=== PATIENT | female | born 1950 | race American Indian/Alaskan Native ===

== ENCOUNTER 2019-05-10 11:09 | Emergency (ER) | payer BC, MEDICARE ==
[2019-05-10 11:17] VITALS: BP 197/66
--- NOTE | 2019-05-10 11:48 | Emergency Department Report ---
Blank Doc - Documentation Documentation: This is a 68-year-old female that presents with left toe pain. This initial assessment/diagnostic orders/clinical plan/treatment(s) is/are subject to change based on patient's health status, clinical progression and re- assessment by fellow clinical providers in the ED. Further treatment and workup at subsequent clinical providers discretion. Patient/guardians urged not to elope from the ED as their condition may be serious if not clinically assessed and managed. Initial orders include: 1- Patient sent to [facility] for further evaluation and treatment 2- xrays
--- NOTE | 2019-05-10 12:07 | XRay Report ---
LEFT GREAT TOE 3 VIEWS INDICATION / CLINICAL INFORMATION: pain/swelling r/t injury. COMPARISON: None available. FINDINGS: Moderate degenerative change in the first metatarsophalangeal joint with subchondral cyst formation. No other significant skeletal abnormality. Signer Name: Prasanna Lovett MD FACR Signed: 05/10/2019 12:03 PM Workstation Name: [id number]
--- NOTE | 2019-05-10 13:02 | Emergency Department Report ---
ED Lower Extremity HPI - General Chief Complaint: Extremity Injury, Lower Stated Complaint: LT BIG TOE/SWELLING/PAIN Time Seen by Provider: 05/10/19 11:47 Source: patient Mode of arrival: Ambulatory Limitations: No Limitations - History of Present Illness Initial Comments: This is a 68-year-old female nontoxic, well nourished in appearance, no acute signs of distress presents to the ED with c/o of left great toe pain after hitting it yesterday. Patient denies any other trauma or injuries. Denies decreased ROM, joint swelling, redness, or abnormal gait. Denies any fever, chills, nausea, vomiting, headache, stiff neck, chest pain or shortness of breath. Patient denies any numbness or tingling. Denies any allergies. MD Complaint: other (left great toe) -: days(s) Injury: Toes: Left Severity: mild Severity scale (0 -10): 8 Improves With: immobilization Worsens With: weight bearing, movement, palpation Associated Symptoms: able to partially bear weight, ambulatory. denies: snap/pop sensation, swelling, numbness, tingling, unable to bear weight - Related Data Allergies Allergy/AdvReac Type Severity Reaction Status Date / Time No Known Allergies Allergy Unverified 05/10/19 11:13 ED Review of Systems ROS: Stated complaint: LT BIG TOE/SWELLING/PAIN Other details as noted in HPI Constitutional: denies: chills, fever Eyes: denies: eye pain, eye discharge, vision change ENT: denies: ear pain, throat pain Respiratory: denies: cough, shortness of breath, wheezing Cardiovascular: denies: chest pain, palpitations Endocrine: no symptoms reported Gastrointestinal: denies: abdominal pain, nausea, diarrhea Genitourinary: denies: urgency, dysuria, discharge Musculoskeletal: denies: back pain, joint swelling, arthralgia Skin: denies: rash, lesions Neurological: denies: headache, weakness, paresthesias Psychiatric: denies: anxiety, depression Hematological/Lymphatic: denies: easy bleeding, easy bruising ED Past Medical Hx - Past Medical History Previous Medical History?: No - Surgical History Past Surgical History?: No - Social History Smoking Status: Never Smoker Substance Use Type: Alcohol ED Physical Exam - General Limitations: No Limitations General appearance: alert, in no apparent distress - Head Head exam: Present: atraumatic, normocephalic - Neck Neck exam: Present: normal inspection, full ROM - Extremities Exam Extremities exam: Present: normal inspection, full ROM, tenderness, normal capillary refill. Absent: joint swelling - Expanded Lower Extremity Exam Left Foot/Toe exam: Present: normal inspection, full ROM, tenderness. Absent: swelling, abrasion, laceration, ecchymosis, deformity, crepidus, dislocation, erythema, amputation, puncture wound, foreign body, calcaneal tenderness, tenderness at base of 5th metatarsal, nail avulsion, subungual hematoma Neuro vascular tendon exam: Present: no vascular compromise Gait: Positive: observed and limited by pain - Back Exam Back exam: Present: normal inspection, full ROM. Absent: tenderness - Neurological Exam Neurological exam: Present: alert, oriented X3, normal gait - Psychiatric Psychiatric exam: Present: normal affect, normal mood - Skin Skin exam: Present: warm, dry, intact, normal color. Absent: rash ED Course Vital Signs 05/10/19 11:15 Temperature 98.2 F Pulse Rate 73 Respiratory 16 Rate Blood Pressure 197/66 O2 Sat by Pulse 94 Oximetry - Reevaluation(s) Reevaluation #1: 05/10/19 13:00 Patient is speaking in full sentences with no signs of distress noted. ED Lower Extremity MDM - Medical Decision Making This is a 68-year-old female that presents with left toe strain. Patient is stable and was examined by me. Exam does not show any acute conditions.Xrays unremarkable. No joint effusion, no redness, no decreased ROM. Normal gait. Patient was instructed to Follow-up with a orthopedic doctor in 3-5 days or if symptoms worsen and continue return to emergency room as soon as possible. At time of discharge, the patient does not seem toxic or ill in appearance. No acute signs of distress noted. Patient agrees to discharge treatment plan of care. No further questions noted by the patient. Critical care attestation.: If time is entered above; I have spent that time in minutes in the direct care of this critically ill patient, excluding procedure time. ED Disposition Clinical Impression: Strain of great toe, left Qualifiers: Encounter type: initial encounter Qualified Code(s): S96.912A - Strain of unspecified muscle and tendon at ankle and foot level, left foot, initial encounter Disposition: TO HOME OR SELFCARE Is pt being admited?: No Does the pt Need Aspirin: No Condition: Stable Additional Instructions: Follow-up with a orthopedic doctor in 3-5 days or if symptoms worsen and continue return to emergency room as soon as possible. Referrals: PRIMARY [facility] [Referring] - 3-5 Days MIREILLE PIKE MD [Staff Physician] - 3-5 Days [facility] [Outside] - 3-5 Days Forms: Work/School Release Form(ED)
== END 2019-05-10 14:06 | disposition home or self-care (01) ==
LOC: ED 11:09
DX: S96.912A Strain of unspecified muscle and tendon at ankle and foot level, left foot, initial encounter (principal); X58.XXXA Exposure to other specified factors, initial encounter; Y93.89 Activity, other specified; Y92.89 Other specified places as the place of occurrence of the external cause; Y99.8 Other external cause status
CPT/HCPCS: 99283

== ENCOUNTER 2020-10-25 16:20 | Inpatient (IN) | payer BC, MEDICARE ==
[2020-10-25 17:15] LABS: Mean Corpuscular HGB Conc 26 % (30-34); Platelet Count 252 K/mm3 (140-440); Red Blood Count 3.99 M/mm3 (3.65-5.03)
[2020-10-25 17:24] LABS: Hematocrit 20.7 % (30.3-42.9); Hemoglobin 5.4 gm/dl (10.1-14.3); Mean Corpuscular Volume 52 fl (79-97); Red Cell Distribution Width 22.8 % (13.2-15.2)
[2020-10-25 17:37] LABS: Alanine Aminotransferase 12 units/L (7-56); Blood Urea Nitrogen 6 mg/dL (7-17); Hemolysis Index 2
[2020-10-25 17:41] LABS: BUN/Creatinine Ratio 10
[2020-10-25 18:10] LABS: Total Cells Counted 100
[2020-10-25 18:11] LABS: Anisocytosis 1+; Hypochromasia 3+; Platelet Estimate Consistent w Auto
[2020-10-25] MEDS ORDERED: SODIUM CHLORIDE 0.9% 500 ML 500 ML IV ONE (18:11)
--- NOTE | 2020-10-25 18:14 | Emergency Department Report ---
HPI - General Chief Complaint: Dizziness Time Seen by Provider: 10/25/20 18:01 - HPI HPI: 69-year-old female presents to the emergency department, sent in by her PCP Dr. Harrington, after she was found to have low hemoglobin of about 5.5. The patient says that she has been dealing with some nonspecific dizziness/lightheadedness and increased fatigue, that worsens with exertion, that has been going on for the past month. She followed up with a PCP recently and had some blood work, and she was called today telling her about the low hemoglobin and to go to the emergency department. The patient denies any previously diagnosed history of this and has never had a blood transfusion previously. She denies any abdominal pain, vaginal bleeding, rectal bleeding, fever. She has no past medical history. ED Past Medical Hx - Past Medical History Previous Medical History?: No - Surgical History Past Surgical History?: Yes Additional Surgical History: TL - Social History Smoking Status: Never Smoker Substance Use Type: Alcohol ED Review of Systems ROS: Stated complaint: LOW HEMOGLOBIN Other details as noted in HPI Comment: All other systems reviewed and negative Constitutional: weakness, other (Fatigue). denies: chills, fever Eyes: denies: eye pain, vision change ENT: denies: ear pain, throat pain Respiratory: denies: cough, wheezing Cardiovascular: denies: chest pain, palpitations Gastrointestinal: denies: abdominal pain, vomiting Genitourinary: denies: dysuria, discharge Musculoskeletal: denies: back pain, arthralgia Skin: denies: rash, lesions Neurological: other (Lightheaded). denies: headache Physical Exam - Physical Exam Vital Signs: Vital Signs 10/25/20 16:43 Temperature 99.5 F Pulse Rate 84 Respiratory 18 Rate Blood Pressure 164/57 O2 Sat by Pulse 100 Oximetry Physical Exam: GENERAL: The patient is well-developed well-nourished. HENT: Normocephalic. Atraumatic. Patient has moist mucous membranes. EYES: Extraocular motions are intact. Pupils equal reactive to light bilaterally. Pale conjunctiva. NECK: Supple. Trachea is midline. CHEST/LUNGS: Clear to auscultation. There is no respiratory distress noted. HEART/CARDIOVASCULAR: Regular. There is no tachycardia. There is no murmur. ABDOMEN: Abdomen is soft, nontender. Patient has normal bowel sounds. There is no abdominal distention. SKIN: Skin is warm and dry. NEURO: The patient is awake, alert, and oriented. The patient is cooperative. The patient has no focal neurologic deficits. Normal speech. Cranial nerves II through XII grossly intact. No facial asymmetry. MUSCULOSKELETAL: There is no tenderness or deformity. There is no limitation range of motion. Radial pulse +2/4 and capillary refill less than 2 seconds to the bilateral upper extremities. ED Course Vital Signs 10/25/20 16:43 Temperature 99.5 F Pulse Rate 84 Respiratory 18 Rate Blood Pressure 164/57 O2 Sat by Pulse 100 Oximetry ED Medical Decision Making - Lab Data Result diagrams: 10/25/20 16:57 10/25/20 16:57 Lab Results 10/25/20 10/25/20 10/25/20 Range/Units 16:57 16:57 16:57 WBC 9.7 (4.5-11.0) K/mm3 RBC 3.99 (3.65-5.03) M/mm3 Hgb 5.4 L* (10.1-14.3) gm/dl Hct 20.7 L (30.3-42.9) % MCV 52 L (79-97) fl MCH 13 L (28-32) pg MCHC 26 L (30-34) % RDW 22.8 H (13.2-15.2) % Plt Count 252 (140-440) K/mm3 Add Manual Diff Complete Total Counted 100 Seg Neuts % (Manual) 84.0 H (40.0-70.0) % Lymphocytes % (Manual) 12.0 L (13.4-35.0) % Monocytes % (Manual) 3.0 (0.0-7.3) % Eosinophils % (Manual) 1.0 (0.0-4.3) % Nucleated RBC % 1.0 H (0.0-0.9) % Seg Neutrophils # Man 8.1 H (1.8-7.7) K/mm3 Band Neutrophils # 0.0 K/mm3 Lymphocytes # (Manual) 1.2 (1.2-5.4) K/mm3 Abs React Lymphs (Man) 0.0 K/mm3 Monocytes # (Manual) 0.3 (0.0-0.8) K/mm3 Eosinophils # (Manual) 0.1 (0.0-0.4) K/mm3 Basophils # (Manual) 0.0 (0.0-0.1) K/mm3 Metamyelocytes # 0.0 K/mm3 Myelocytes # 0.0 K/mm3 Promyelocytes # 0.0 K/mm3 Blast Cells # 0.0 K/mm3 WBC Morphology Not Reportable Hypersegmented Neuts Not Reportable Hyposegmented Neuts Not Reportable Hypogranular Neuts Not Reportable Smudge Cells Not Reportable Toxic Granulation Not Reportable Toxic Vacuolation Not Reportable Dohle Bodies Not Reportable Pelger-Huet Anomaly Not Reportable Domenico Rods Not Reportable Platelet Estimate Consistent w auto Clumped Platelets Not Reportable Plt Clumps, EDTA Not Reportable Large Platelets Not Reportable Giant Platelets Not Reportable Platelet Satelliting Not Reportable Plt Morphology Comment Not Reportable RBC Morphology Not Reportable Dimorphic RBCs Not Reportable Polychromasia Rare Hypochromasia 3+ Poikilocytosis Not Reportable Anisocytosis 1+ Microcytosis 3+ Macrocytosis Not Reportable Spherocytes Not Reportable Pappenheimer Bodies Not Reportable Sickle Cells Not Reportable Target Cells Not Reportable Tear Drop Cells Not Reportable Ovalocytes Not Reportable Helmet Cells Not Reportable Kimball-Marshall Bodies Not Reportable [place] Rings Not Reportable [place] Cells Not Reportable Bite Cells Not Reportable Crenated Cell Not Reportable Elliptocytes Not Reportable Acanthocytes (Spur) Not Reportable Rouleaux Not Reportable Hemoglobin C Crystals Not Reportable Schistocytes Not Reportable Malaria parasites Not Reportable Tamir Bodies Not Reportable Hem Pathologist Commnt No Sodium 141 (137-145) mmol/L Potassium 4.2 (3.6-5.0) mmol/L Chloride 107.3 H (98-107) mmol/L Carbon Dioxide 24 (22-30) mmol/L Anion Gap 14 mmol/L BUN 6 L (7-17) mg/dL Creatinine 0.6 (0.6-1.2) mg/dL Estimated GFR > 60 ml/min BUN/Creatinine Ratio 10 % Glucose 87 (65-100) mg/dL Calcium 9.0 (8.4-10.2) mg/dL Total Bilirubin 0.40 (0.1-1.2) mg/dL AST 15 (5-40) units/L ALT 12 (7-56) units/L Alkaline Phosphatase 71 (35-129) units/L Troponin T (0.00-0.029) ng/mL Total Protein 6.8 (6.3-8.2) g/dL Albumin 4.0 (3.9-5) g/dL Albumin/Globulin Ratio 1.4 % TSH (0.270-4.200) mlU/mL Blood Type B POSITIVE Antibody Screen Negative Crossmatch See Detail 10/25/20 10/25/20 Range/Units 18:34 18:34 WBC (4.5-11.0) K/mm3 RBC (3.65-5.03) M/mm3 Hgb (10.1-14.3) gm/dl Hct (30.3-42.9) % MCV (79-97) fl MCH (28-32) pg MCHC (30-34) % RDW (13.2-15.2) % Plt Count (140-440) K/mm3 Add Manual Diff Total Counted Seg Neuts % (Manual) (40.0-70.0) % Lymphocytes % (Manual) (13.4-35.0) % Monocytes % (Manual) (0.0-7.3) % Eosinophils % (Manual) (0.0-4.3) % Nucleated RBC % (0.0-0.9) % Seg Neutrophils # Man (1.8-7.7) K/mm3 Band Neutrophils # K/mm3 Lymphocytes # (Manual) (1.2-5.4) K/mm3 Abs React Lymphs (Man) K/mm3 Monocytes # (Manual) (0.0-0.8) K/mm3 Eosinophils # (Manual) (0.0-0.4) K/mm3 Basophils # (Manual) (0.0-0.1) K/mm3 Metamyelocytes # K/mm3 Myelocytes # K/mm3 Promyelocytes # K/mm3 Blast Cells # K/mm3 WBC Morphology Hypersegmented Neuts Hyposegmented Neuts Hypogranular Neuts Smudge Cells Toxic Granulation Toxic Vacuolation Dohle Bodies Pelger-Huet Anomaly Domenico Rods Platelet Estimate Clumped Platelets Plt Clumps, EDTA Large Platelets Giant Platelets Platelet Satelliting Plt Morphology Comment RBC Morphology Dimorphic RBCs Polychromasia Hypochromasia Poikilocytosis Anisocytosis Microcytosis Macrocytosis Spherocytes Pappenheimer Bodies Sickle Cells Target Cells Tear Drop Cells Ovalocytes Helmet Cells Kimball-Marshall Bodies [place] Cells Bite Cells Crenated Cell Elliptocytes Acanthocytes (Spur) Rouleaux Hemoglobin C Crystals Schistocytes Malaria parasites Tamir Bodies Hem Pathologist Commnt Sodium (137-145) mmol/L Potassium (3.6-5.0) mmol/L Chloride (98-107) mmol/L Carbon Dioxide (22-30) mmol/L Anion Gap mmol/L BUN (7-17) mg/dL Creatinine (0.6-1.2) mg/dL Estimated GFR ml/min BUN/Creatinine Ratio % Glucose (65-100) mg/dL Calcium (8.4-10.2) mg/dL Total Bilirubin (0.1-1.2) mg/dL AST (5-40) units/L ALT (7-56) units/L Alkaline Phosphatase (35-129) units/L Troponin T < 0.010 (0.00-0.029) ng/mL Total Protein (6.3-8.2) g/dL Albumin (3.9-5) g/dL Albumin/Globulin Ratio % TSH 4.260 H (0.270-4.200) mlU/mL Blood Type Antibody Screen Crossmatch - EKG Data -: EKG Interpreted by [place] EKG shows normal: sinus rhythm, axis, intervals, QRS complexes, ST-T waves Rate: normal - EKG Data When compared to previous EKG there are: previous EKG unavailable Interpretation: normal EKG - Medical Decision Making This patient presents to the emergency department with a complaint of some generalized weakness and fatigue and was found to have low hemoglobin by her PCP. Hemoglobin today is 5.4. It is microcytic and probably consistent with iron deficiency. 2 units of packed red blood cells have been ordered for transfusion. Patient will be admitted to the hospital and has been accepted by Dr. [place]. Critical Care Time: Yes Critical care time in (mins) excluding proc time.: 31 Critical care attestation.: If time is entered above; I have spent that time in minutes in the direct care of this critically ill patient, excluding procedure time. Critical care time spent on this patient in doing her initial evaluation, multiple reevaluations, ordering and interpretation of labs, ordering of packed red blood cells for transfusion, multiple discussions with the patient. Critical Care Time: 31 minutes ED Disposition Clinical Impression: Anemia requiring transfusions, Microcytic anemia, Symptomatic anemia Hypertension Qualifiers: Hypertension type: primary hypertension Qualified Code(s): I10 - Essential (primary) hypertension Disposition: OP ADMIT IP TO THIS HOSP Is pt being admited?: Yes Condition: Fair Time of Disposition: 19:44
[2020-10-25] MEDS ORDERED: SODIUM CHLORIDE 0.9% 500 ML 500 ML ONE (20:30)
[2020-10-25] MEDS ORDERED: ONDANSETRON 4 MG/2 ML INJ IV PRN (23:29)
[2020-10-25] MEDS ORDERED: ACETAMINOPHEN 325 MG TAB PO PRN (23:29)
[2020-10-25] MEDS ORDERED: oxyCODONE /ACETAMINOPHEN 5-325MG TAB PO PRN (23:29)
[2020-10-25] MEDS ORDERED: METOCLOPRAMIDE 10 MG/2 ML INJ IV PRN (23:29)
[2020-10-25] MEDS ORDERED: HYDROmorphone 1 MG/1 ML INJ IV PRN (23:29)
--- NOTE | 2020-10-25 23:40 | History and Physical Report ---
History of Present Illness Date of examination: 10/25/20 Date of admission: 10/25/20 19:44 Chief complaint: Feels weak and lightheaded for 1 week Low hemoglobin count History of present illness: 69-year-old female sent by her PCP for low hemoglobin of about 5.5. Patient has been having severe dizziness and lightheadedness and increased fatigue. Shortness of breath worsens with exertion. Is been going on for the past 1 month. No hematemesis no melena. Patient denies being anemic in the past and no history of any blood transfusions previously. Denies any vaginal bleeding. No fever or chills. No pain. - Past Medical History Previous Medical History?: No - Surgical History Past Surgical History?: Yes Additional Surgical History: TL - Social History Smoking Status: Never Smoker Substance Use Type: Alcohol Review of Systems ROS: Stated complaint: LOW HEMOGLOBIN Other details as noted in HPI Comment: All other systems reviewed and negative Constitutional: weakness, other (Fatigue). denies: chills, fever Eyes: denies: eye pain, vision change ENT: denies: ear pain, throat pain Respiratory: denies: cough, wheezing Cardiovascular: denies: chest pain, palpitations Gastrointestinal: denies: abdominal pain, vomiting Genitourinary: denies: dysuria, discharge Musculoskeletal: denies: back pain, arthralgia Skin: denies: rash, lesions Neurological: other (Lightheaded). denies: headache Medications and Allergies Allergies Allergy/AdvReac Type Severity Reaction Status Date / Time No Known Allergies Allergy Unverified 05/10/19 11:13 Active Meds: Active Medications Acetaminophen (Acetaminophen 325 Mg Tab) 650 mg PO Q4H PRN PRN Reason: Pain MILD(1-3)/Fever >100.5/BROOKS Famotidine (Famotidine 20 Mg/2 Ml Inj) 20 mg IV BID RONY Heparin Sodium (Porcine) (Heparin 5,000 Unit/1 Ml Vial) 5,000 unit SUB-Q Q12HR RONY Hydralazine HCl (Hydralazine 20 Mg/1 Ml Inj) 10 mg IV Q6HR PRN PRN Reason: Hypertension Hydromorphone HCl (Hydromorphone 1 Mg/1 Ml Inj) 0.5 mg IV Q3H PRN PRN Reason: Pain , Severe (7-10) Metoclopramide HCl (Metoclopramide 10 Mg/2 Ml Inj) 10 mg IV Q6H PRN PRN Reason: Nausea And Vomiting Ondansetron HCl (Ondansetron 4 Mg/2 Ml Inj) 4 mg IV Q8H PRN PRN Reason: Nausea And Vomiting Oxycodone/Acetaminophen (Oxycodone /Acetaminophen 5-325mg Tab) 1 tab PO Q6H PRN PRN Reason: Pain, Moderate (4-6) Sodium Chloride (Sodium Chloride 0.9% 10 Ml Flush Syringe) 10 ml IV BID RONY Sodium Chloride (Sodium Chloride 0.9% 10 Ml Flush Syringe) 10 ml IV PRN PRN PRN Reason: LINE FLUSH Exam - Constitutional Vitals: Temp Pulse Resp BP Pulse Ox 97.4 F L 85 16 205/72 99 10/25/20 23:00 10/25/20 23:00 10/25/20 23:00 10/25/20 23:00 10/25/20 23:00 General appearance: Present: no acute distress, well-nourished - EENT Eyes: Present: PERRL ENT: hearing intact, clear oral mucosa, other (Pale mucous membranes) - Neck Neck: Present: supple, normal ROM - Respiratory Respiratory effort: normal Respiratory: bilateral: CTA - Cardiovascular Heart Sounds: Present: S1 & S2. Absent: rub, click - Extremities Extremities: pulses symmetrical, No edema Peripheral Pulses: within normal limits - Abdominal General gastrointestinal: Present: soft, non-tender, non-distended, normal bowel sounds Female genitourinary: Present: normal - Integumentary Integumentary: Present: clear, warm, dry - Musculoskeletal Musculoskeletal: gait normal, strength equal bilaterally - Psychiatric Psychiatric: appropriate mood/affect, intact judgment & insight - Neurologic Neurologic: CNII-XII intact, moves all extremities HEART Score - HEART Score Troponin: Troponin T < 0.010 ng/mL (0.00-0.029) 10/25/20 18:34 Results - Labs CBC & Chem 7: 10/25/20 16:57 10/26/20 00:29 Labs: Laboratory Last Values WBC 9.7 K/mm3 (4.5-11.0) 10/25/20 16:57 RBC 3.99 M/mm3 (3.65-5.03) 10/25/20 16:57 Hgb 5.4 gm/dl (10.1-14.3) L* 10/25/20 16:57 Hct 20.7 % (30.3-42.9) L 10/25/20 16:57 MCV 52 fl (79-97) L 10/25/20 16:57 MCH 13 pg (28-32) L 10/25/20 16:57 MCHC 26 % (30-34) L 10/25/20 16:57 RDW 22.8 % (13.2-15.2) H 10/25/20 16:57 Plt Count 252 K/mm3 (140-440) 10/25/20 16:57 Add Manual Diff Complete 10/25/20 16:57 Total Counted 100 10/25/20 16:57 Seg Neuts % (Manual) 84.0 % (40.0-70.0) H 10/25/20 16:57 Lymphocytes % (Manual) 12.0 % (13.4-35.0) L 10/25/20 16:57 Monocytes % (Manual) 3.0 % (0.0-7.3) 10/25/20 16:57 Eosinophils % (Manual) 1.0 % (0.0-4.3) 10/25/20 16:57 Nucleated RBC % 1.0 % (0.0-0.9) H 10/25/20 16:57 Seg Neutrophils # Man 8.1 K/mm3 (1.8-7.7) H 10/25/20 16:57 Band Neutrophils # 0.0 K/mm3 10/25/20 16:57 Lymphocytes # (Manual) 1.2 K/mm3 (1.2-5.4) 10/25/20 16:57 Abs React Lymphs (Man) 0.0 K/mm3 10/25/20 16:57 Monocytes # (Manual) 0.3 K/mm3 (0.0-0.8) 10/25/20 16:57 Eosinophils # (Manual) 0.1 K/mm3 (0.0-0.4) 10/25/20 16:57 Basophils # (Manual) 0.0 K/mm3 (0.0-0.1) 10/25/20 16:57 Metamyelocytes # 0.0 K/mm3 10/25/20 16:57 Myelocytes # 0.0 K/mm3 10/25/20 16:57 Promyelocytes # 0.0 K/mm3 10/25/20 16:57 Blast Cells # 0.0 K/mm3 10/25/20 16:57 WBC Morphology Not Reportable 10/25/20 16:57 Hypersegmented Neuts Not Reportable 10/25/20 16:57 Hyposegmented Neuts Not Reportable 10/25/20 16:57 Hypogranular Neuts Not Reportable 10/25/20 16:57 Smudge Cells Not Reportable 10/25/20 16:57 Toxic Granulation Not Reportable 10/25/20 16:57 Toxic Vacuolation Not Reportable 10/25/20 16:57 Dohle Bodies Not Reportable 10/25/20 16:57 Pelger-Huet Anomaly Not Reportable 10/25/20 16:57 Domenico Rods Not Reportable 10/25/20 16:57 Platelet Estimate Consistent w auto 10/25/20 16:57 Clumped Platelets Not Reportable 10/25/20 16:57 Plt Clumps, EDTA Not Reportable 10/25/20 16:57 Large Platelets Not Reportable 10/25/20 16:57 Giant Platelets Not Reportable 10/25/20 16:57 Platelet Satelliting Not Reportable 10/25/20 16:57 Plt Morphology Comment Not Reportable 10/25/20 16:57 RBC Morphology Not Reportable 10/25/20 16:57 Dimorphic RBCs Not Reportable 10/25/20 16:57 Polychromasia Rare 10/25/20 16:57 Hypochromasia 3+ 10/25/20 16:57 Poikilocytosis Not Reportable 10/25/20 16:57 Anisocytosis 1+ 10/25/20 16:57 Microcytosis 3+ 10/25/20 16:57 Macrocytosis Not Reportable 10/25/20 16:57 Spherocytes Not Reportable 10/25/20 16:57 Pappenheimer Bodies Not Reportable 10/25/20 16:57 Sickle Cells Not Reportable 10/25/20 16:57 Target Cells Not Reportable 10/25/20 16:57 Tear Drop Cells Not Reportable 10/25/20 16:57 Ovalocytes Not Reportable 10/25/20 16:57 Helmet Cells Not Reportable 10/25/20 16:57 [place] Bodies Not Reportable 10/25/20 16:57 [place] Rings Not Reportable 10/25/20 16:57 [place] Cells Not Reportable 10/25/20 16:57 Bite Cells Not Reportable 10/25/20 16:57 Crenated Cell Not Reportable 10/25/20 16:57 Elliptocytes Not Reportable 10/25/20 16:57 Acanthocytes (Spur) Not Reportable 10/25/20 16:57 Rouleaux Not Reportable 10/25/20 16:57 Hemoglobin C Crystals Not Reportable 10/25/20 16:57 Schistocytes Not Reportable 10/25/20 16:57 Malaria parasites Not Reportable 10/25/20 16:57 Tamir Bodies Not Reportable 10/25/20 16:57 Hem Pathologist Commnt No 10/25/20 16:57 Sodium 141 mmol/L (137-145) 10/25/20 16:57 Potassium 4.2 mmol/L (3.6-5.0) 10/25/20 16:57 Chloride 107.3 mmol/L (98-107) H 10/25/20 16:57 Carbon Dioxide 24 mmol/L (22-30) 10/25/20 16:57 Anion Gap 14 mmol/L 10/25/20 16:57 BUN 6 mg/dL (7-17) L 10/25/20 16:57 Creatinine 0.6 mg/dL (0.6-1.2) 10/25/20 16:57 Estimated GFR > 60 ml/min 10/25/20 16:57 BUN/Creatinine Ratio 10 % 10/25/20 16:57 Glucose 87 mg/dL (65-100) 10/25/20 16:57 Calcium 9.0 mg/dL (8.4-10.2) 10/25/20 16:57 Total Bilirubin 0.40 mg/dL (0.1-1.2) 10/25/20 16:57 AST 15 units/L (5-40) 10/25/20 16:57 ALT 12 units/L (7-56) 10/25/20 16:57 Alkaline Phosphatase 71 units/L (35-129) 10/25/20 16:57 Troponin T < 0.010 ng/mL (0.00-0.029) 10/25/20 18:34 Total Protein 6.8 g/dL (6.3-8.2) 10/25/20 16:57 Albumin 4.0 g/dL (3.9-5) 10/25/20 16:57 Albumin/Globulin Ratio 1.4 % 10/25/20 16:57 TSH 4.260 mlU/mL (0.270-4.200) H 10/25/20 18:34 Blood Type B POSITIVE 10/25/20 16:57 Antibody Screen Negative 10/25/20 16:57 Crossmatch See Detail 10/25/20 16:57 Short CBC 10/25/20 Range/Units 16:57 WBC 9.7 (4.5-11.0) K/mm3 Hgb 5.4 L* (10.1-14.3) gm/dl Hct 20.7 L (30.3-42.9) % Plt Count 252 (140-440) K/mm3 BMP 10/25/20 10/26/20 16:57 00:29 Sodium 141 141 Potassium 4.2 3.7 Chloride 107.3 H 108.5 H Carbon Dioxide 24 20 L BUN 6 L 6 L Creatinine 0.6 0.6 Glucose 87 93 Calcium 9.0 8.6 Cardiac Enzymes 10/25/20 Range/Units 18:34 Troponin T < 0.010 (0.00-0.029) ng/mL Liver Function 10/25/20 10/26/20 Range/Units 16:57 00:29 Total Bilirubin 0.40 0.40 (0.1-1.2) mg/dL AST 15 22 (5-40) units/L ALT 12 12 (7-56) units/L Alkaline Phosphatase 71 76 (35-129) units/L Albumin 4.0 3.8 L (3.9-5) g/dL Assessment and Plan Advance Directives: Yes (Full code) VTE prophylaxis?: Chemical Plan of care discussed with patient/family: Yes - Patient Problems (1) Symptomatic anemia Current Visit: Yes Status: Acute Plan to address problem: Etiology unclear No obvious source of bleeding Possible severe iron deficiency Transfuse 2 units of packed red blood cells Iron studies and B12 and folic acid requested Possible discharge in 23 hours Follow-up with GI as outpatient (2) Elevated TSH Current Visit: Yes Status: Acute Plan to address problem: Thyroid panel requested (3) DVT prophylaxis Current Visit: Yes Status: Acute Plan to address problem: On heparin and GI prophylaxis
[2020-10-25] MEDS: HEPARIN 5,000 UNIT/1 ML VIAL SUB-Q SCH (23:50)
[2020-10-25] MEDS: FAMOTIDINE 20 MG/2 ML INJ IV SCH (23:50)
[2020-10-25] MEDS: hydrALAZINE 20 MG/1 ML INJ IV PRN (23:52)
[2020-10-26 01:21] LABS: Alanine Aminotransferase 12 units/L (7-56); Albumin 3.8 g/dL (3.9-5); BUN/Creatinine Ratio 10; Blood Urea Nitrogen 6 mg/dL (7-17); Calcium 8.6 mg/dL (8.4-10.2); Hemolysis Index 23
[2020-10-26 01:32] LABS: % Iron Saturation 22.44 %
[2020-10-26] MEDS ORDERED: SODIUM CHLORIDE 0.9% 500 ML 500 ML IV SCH (03:45)
[2020-10-26] MEDS: hydrALAZINE 20 MG/1 ML INJ IV PRN (07:44)
--- NOTE | 2020-10-26 10:48 | Electrocardiograph Report ---
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
[2020-10-26] MEDS: FAMOTIDINE 20 MG/2 ML INJ IV SCH (11:00)
[2020-10-26] MEDS: HEPARIN 5,000 UNIT/1 ML VIAL SUB-Q SCH ×2 (11:02→22:47)
[2020-10-26 11:21] LABS: Mean Corpuscular HGB Conc 30 % (30-34); Red Blood Count 4.85 M/mm3 (3.65-5.03)
--- NOTE | 2020-10-26 11:21 | Progress Note ---
Assessment and Plan Assessment and plan: (1) Symptomatic anemia Current Visit: Yes Status: Acute Plan to address problem: Etiology unclear No obvious source of bleeding Possible severe iron deficiency Transfuse 2 units of packed red blood cells Iron studies and B12 and folic acid requested Possible discharge in 23 hours Follow-up with GI as outpatient (2) Elevated TSH Current Visit: Yes Status: Acute Plan to address problem: Thyroid panel requested (3) DVT prophylaxis Current Visit: Yes Status: Acute Plan to address problem: On heparin and GI prophylaxis 10/26/2020 -Patient's hemoglobin was 5.4 and was transfused 2 units of blood. Posttransfusion hemoglobin and hematocrit pending. Iron panel was done and normal. Patient denied any bleeding from anywhere. Patient states she had dark stool since she was admitted to the hospital. Patient need GI evaluation before discharge. Management plan was discussed with the patient in detail and was in agreement with the plan of care. History Interval history: Patient was seen and evaluated this morning. Patient did not have any complaints. Patient states her stool was dark that she was admitted Hospitalist Physical - Physical exam Narrative exam: Not in cardiopulmonary distress. The patient appeared well nourished and normally developed. Vital signs as documented. Head exam is unremarkable. No scleral icterus . Neck is without jugular venous distension, thyromegaly, or carotid bruits. Lungs are clear to auscultation. Cardiac exam reveals regular rate and Rhythm. Abdominal exam reveals normal bowel sounds, nontender, no organomegaly. Extremities are nonedematous and both femoral and pedal pulses are normal. [employer] W[employer]E MANAGER: Alert and oriented 3. No focal weakness. - Constitutional Vitals: Temp Pulse Resp BP Pulse Ox 99 F 69 20 181/67 99 10/26/20 07:28 10/26/20 07:44 10/26/20 07:28 10/26/20 07:44 10/26/20 07:28 General appearance: Present: no acute distress, well-nourished HEART Score - HEART Score Troponin: Troponin T < 0.010 ng/mL (0.00-0.029) 10/25/20 18:34 Results - Labs CBC & Chem 7: 10/25/20 16:57 10/26/20 00:29 Labs: Laboratory Last Values WBC 9.7 K/mm3 (4.5-11.0) 10/25/20 16:57 RBC 3.99 M/mm3 (3.65-5.03) 10/25/20 16:57 Hgb 5.4 gm/dl (10.1-14.3) L* 10/25/20 16:57 Hct 20.7 % (30.3-42.9) L 10/25/20 16:57 MCV 52 fl (79-97) L 10/25/20 16:57 MCH 13 pg (28-32) L 10/25/20 16:57 MCHC 26 % (30-34) L 10/25/20 16:57 RDW 22.8 % (13.2-15.2) H 10/25/20 16:57 Plt Count 252 K/mm3 (140-440) 10/25/20 16:57 Add Manual Diff Complete 10/25/20 16:57 Total Counted 100 10/25/20 16:57 Seg Neuts % (Manual) 84.0 % (40.0-70.0) H 10/25/20 16:57 Lymphocytes % (Manual) 12.0 % (13.4-35.0) L 10/25/20 16:57 Monocytes % (Manual) 3.0 % (0.0-7.3) 10/25/20 16:57 Eosinophils % (Manual) 1.0 % (0.0-4.3) 10/25/20 16:57 Nucleated RBC % 1.0 % (0.0-0.9) H 10/25/20 16:57 Seg Neutrophils # Man 8.1 K/mm3 (1.8-7.7) H 10/25/20 16:57 Band Neutrophils # 0.0 K/mm3 10/25/20 16:57 Lymphocytes # (Manual) 1.2 K/mm3 (1.2-5.4) 10/25/20 16:57 Abs React Lymphs (Man) 0.0 K/mm3 10/25/20 16:57 Monocytes # (Manual) 0.3 K/mm3 (0.0-0.8) 10/25/20 16:57 Eosinophils # (Manual) 0.1 K/mm3 (0.0-0.4) 10/25/20 16:57 Basophils # (Manual) 0.0 K/mm3 (0.0-0.1) 10/25/20 16:57 Metamyelocytes # 0.0 K/mm3 10/25/20 16:57 Myelocytes # 0.0 K/mm3 10/25/20 16:57 Promyelocytes # 0.0 K/mm3 10/25/20 16:57 Blast Cells # 0.0 K/mm3 10/25/20 16:57 WBC Morphology Not Reportable 10/25/20 16:57 Hypersegmented Neuts Not Reportable 10/25/20 16:57 Hyposegmented Neuts Not Reportable 10/25/20 16:57 Hypogranular Neuts Not Reportable 10/25/20 16:57 Smudge Cells Not Reportable 10/25/20 16:57 Toxic Granulation Not Reportable 10/25/20 16:57 Toxic Vacuolation Not Reportable 10/25/20 16:57 Dohle Bodies Not Reportable 10/25/20 16:57 Pelger-Huet Anomaly Not Reportable 10/25/20 16:57 Domenico Rods Not Reportable 10/25/20 16:57 Platelet Estimate Consistent w auto 10/25/20 16:57 Clumped Platelets Not Reportable 10/25/20 16:57 Plt Clumps, EDTA Not Reportable 10/25/20 16:57 Large Platelets Not Reportable 10/25/20 16:57 Giant Platelets Not Reportable 10/25/20 16:57 Platelet Satelliting Not Reportable 10/25/20 16:57 Plt Morphology Comment Not Reportable 10/25/20 16:57 RBC Morphology Not Reportable 10/25/20 16:57 Dimorphic RBCs Not Reportable 10/25/20 16:57 Polychromasia Rare 10/25/20 16:57 Hypochromasia 3+ 10/25/20 16:57 Poikilocytosis Not Reportable 10/25/20 16:57 Anisocytosis 1+ 10/25/20 16:57 Microcytosis 3+ 10/25/20 16:57 Macrocytosis Not Reportable 10/25/20 16:57 Spherocytes Not Reportable 10/25/20 16:57 Pappenheimer Bodies Not Reportable 10/25/20 16:57 Sickle Cells Not Reportable 10/25/20 16:57 Target Cells Not Reportable 10/25/20 16:57 Tear Drop Cells Not Reportable 10/25/20 16:57 Ovalocytes Not Reportable 10/25/20 16:57 Helmet Cells Not Reportable 10/25/20 16:57 Kimball-[place] Bodies Not Reportable 10/25/20 16:57 [place] Rings Not Reportable 10/25/20 16:57 [place] Cells Not Reportable 10/25/20 16:57 Bite Cells Not Reportable 10/25/20 16:57 Crenated Cell Not Reportable 10/25/20 16:57 Elliptocytes Not Reportable 10/25/20 16:57 Acanthocytes (Spur) Not Reportable 10/25/20 16:57 Rouleaux Not Reportable 10/25/20 16:57 Hemoglobin C Crystals Not Reportable 10/25/20 16:57 Schistocytes Not Reportable 10/25/20 16:57 Malaria parasites Not Reportable 10/25/20 16:57 Tamir Bodies Not Reportable 10/25/20 16:57 Hem Pathologist Commnt No 10/25/20 16:57 Sodium 141 mmol/L (137-145) 10/26/20 00:29 Potassium 3.7 mmol/L (3.6-5.0) 10/26/20 00:29 Chloride 108.5 mmol/L (98-107) H 10/26/20 00:29 Carbon Dioxide 20 mmol/L (22-30) L 10/26/20 00:29 Anion Gap 16 mmol/L 10/26/20 00:29 BUN 6 mg/dL (7-17) L 10/26/20 00:29 Creatinine 0.6 mg/dL (0.6-1.2) 10/26/20 00:29 Estimated GFR > 60 ml/min 10/26/20 00:29 BUN/Creatinine Ratio 10 % 10/26/20 00:29 Glucose 93 mg/dL (65-100) 10/26/20 00:29 Hemoglobin A1c 5.0 % (4-6) 10/26/20 Unknown Calcium 8.6 mg/dL (8.4-10.2) 10/26/20 00:29 Iron 90 ug/dL (37-170) 10/26/20 00:29 TIBC 401 mcg/dL (250-450) 10/26/20 00:29 % Saturation 22.44 % 10/26/20 00:29 Transferrin 346 mg/dl (192-382) 10/26/20 00:29 Total Bilirubin 0.40 mg/dL (0.1-1.2) 10/26/20 00:29 AST 22 units/L (5-40) 10/26/20 00:29 ALT 12 units/L (7-56) 10/26/20 00:29 Alkaline Phosphatase 76 units/L (35-129) 10/26/20 00:29 Troponin T < 0.010 ng/mL (0.00-0.029) 10/25/20 18:34 Total Protein 7.0 g/dL (6.3-8.2) 10/26/20 00:29 Albumin 3.8 g/dL (3.9-5) L 10/26/20 00:29 Albumin/Globulin Ratio 1.2 % 10/26/20 00:29 Vitamin B12 575.2 pg/mL (211-911) 10/26/20 00:29 TSH 4.260 mlU/mL (0.270-4.200) H 10/25/20 18:34 Blood Type B POSITIVE 10/25/20 16:57 Antibody Screen Negative 10/25/20 16:57 Crossmatch See Detail 10/25/20 16:57 [place]/IV: Voiding Method Toilet Active Medications - Current Medications Current Medications: Generic Name Dose Route Start Last Admin Trade Name Freq PRN Reason Stop Dose Admin Acetaminophen 650 mg 10/25/20 23:29 Acetaminophen 325 Mg Tab PO Q4H PRN Pain MILD(1-3)/Fever >100.5/BROOKS Famotidine 20 mg 10/25/20 23:45 10/25/20 23:50 Famotidine 20 Mg/2 Ml Inj IV 20 mg BID RONY Administration Heparin Sodium (Porcine) 5,000 unit 10/25/20 23:45 10/25/20 23:50 Heparin 5,000 Unit/1 Ml Vial SUB-Q 5,000 unit Q12HR RONY Administration Hydralazine HCl 10 mg 10/25/20 22:09 10/26/20 07:44 Hydralazine 20 Mg/1 Ml Inj IV 10 mg Q6HR PRN Administration Hypertension Hydromorphone HCl 0.5 mg 10/25/20 23:29 Hydromorphone 1 Mg/1 Ml Inj IV Q3H PRN Pain , Severe (7-10) Sodium Chloride 500 mls @ 50 mls/hr 10/26/20 03:45 10/26/20 03:21 Nacl 0.9% 500 Ml IV 10/26/20 13:44 50 mls/hr DIRECT RONY Administration Metoclopramide HCl 10 mg 10/25/20 23:29 Metoclopramide 10 Mg/2 Ml Inj IV Q6H PRN Nausea And Vomiting Ondansetron HCl 4 mg 10/25/20 23:29 Ondansetron 4 Mg/2 Ml Inj IV Q8H PRN Nausea And Vomiting Oxycodone/Acetaminophen 1 tab 10/25/20 23:29 Oxycodone /Acetaminophen 5-325mg Tab PO Q6H PRN Pain, Moderate (4-6) Sodium Chloride 10 ml 10/26/20 10:00 Sodium Chloride 0.9% 10 Ml Flush Syringe IV BID RONY Sodium Chloride 10 ml 10/25/20 23:29 Sodium Chloride 0.9% 10 Ml Flush Syringe IV PRN PRN LINE FLUSH
[2020-10-26 11:35] LABS: Hemoglobin 9.2 gm/dl (10.1-14.3); Mean Corpuscular Volume 64 fl (79-97); Red Cell Distribution Width 38.7 % (13.2-15.2)
[2020-10-26 11:42] LABS: Hematocrit 30.9 % (30.3-42.9)
[2020-10-26 13:07] LABS: Total Cells Counted 100
[2020-10-26 13:09] LABS: Hypochromasia 3+; Large Platelets 1+; Platelet Estimate Consistent w Auto
[2020-10-26 13:10] LABS: Platelet Count 232 K/mm3 (140-440)
--- NOTE | 2020-10-26 16:34 | Gastroenterology Consultation ---
History of Present Illness - Reason for Consult Consult date: 10/26/20 Anemia Requesting physician: DOMINIC LEAL - History of Present Illness The patient is a 69 yo female with no past GI history, who was sent to [facility] by her PCP for new anemia. The patient has no hx of anemia or blood transfusion, but has moved here from [place], and admits had not seen her PCP for about a year. She has no gross GI losses, abdominal pain, or weight loss. There is no N/V/anorexia. She has no CP or SOB, but does have fatigue (better after transfusion). She had a colonoscopy in 2014 that was normal, and never had an EGD. She denies NSAID use. She does have a family hx of "stomach cancer" in her mother. Past History Past Medical History: No medical history, other (Normal colonoscopy 2014) Past Surgical History: Other (BTL) Social history: denies: smoking, alcohol abuse Family history: cancer (Mother-stomach CA) Medications and Allergies Allergies Allergy/AdvReac Type Severity Reaction Status Date / Time No Known Allergies Allergy Unverified 05/10/19 11:13 Active Meds: Active Medications Acetaminophen (Acetaminophen 325 Mg Tab) 650 mg PO Q4H PRN PRN Reason: Pain MILD(1-3)/Fever >100.5/BROOKS Heparin Sodium (Porcine) (Heparin 5,000 Unit/1 Ml Vial) 5,000 unit SUB-Q Q12HR RONY Last Admin: 10/26/20 11:02 Dose: 5,000 unit Documented by: Hydralazine HCl (Hydralazine 20 Mg/1 Ml Inj) 10 mg IV Q6HR PRN PRN Reason: Hypertension Last Admin: 10/26/20 07:44 Dose: 10 mg Documented by: Hydromorphone HCl (Hydromorphone 1 Mg/1 Ml Inj) 0.5 mg IV Q3H PRN PRN Reason: Pain , Severe (7-10) Metoclopramide HCl (Metoclopramide 10 Mg/2 Ml Inj) 10 mg IV Q6H PRN PRN Reason: Nausea And Vomiting Ondansetron HCl (Ondansetron 4 Mg/2 Ml Inj) 4 mg IV Q8H PRN PRN Reason: Nausea And Vomiting Oxycodone/Acetaminophen (Oxycodone /Acetaminophen 5-325mg Tab) 1 tab PO Q6H PRN PRN Reason: Pain, Moderate (4-6) Polyethylene Glycol/Electrolytes (Polyethylene Glycol/Elect Soln 4000 Ml) 4,000 ml PO ONCE ONE Stop: 10/26/20 16:29 Sodium Chloride (Sodium Chloride 0.9% 10 Ml Flush Syringe) 10 ml IV BID RONY Last Admin: 10/26/20 10:02 Dose: 10 ml Documented by: Sodium Chloride (Sodium Chloride 0.9% 10 Ml Flush Syringe) 10 ml IV PRN PRN PRN Reason: LINE FLUSH I HAVE REVIEWED/RECONCILED MEDICATIONS Review of Systems - Review of Systems All systems: negative (as noted in the HPI) Exam - Constitutional Vital Signs: Temp Pulse Resp BP Pulse Ox 99 F 69 20 181/67 99 10/26/20 07:28 10/26/20 07:44 10/26/20 07:28 10/26/20 07:44 10/26/20 07:28 General appearance: no acute distress - EENT Eyes: PERRL, EOM intact ENT: hearing intact, clear oral mucosa, dentition normal - Neck Neck: supple, normal ROM - Respiratory Respiratory effort: normal Respiratory: bilateral: CTA - Cardiovascular Rhythm: regular Heart Sounds: Present: S1 & S2 Extremities: no ischemia, No edema - Gastrointestinal General gastrointestinal: Present: soft, non-tender, non-distended - Integumentary Integumentary: Present: clear, warm, dry - Neurologic Neurological: alert and oriented x3 - Labs CBC & Chem 7: 10/26/20 10:36 10/26/20 00:29 Lab Results: Laboratory Results - last 24 hr 10/25/20 10/25/20 10/25/20 16:57 16:57 16:57 WBC 9.7 RBC 3.99 Hgb 5.4 L* Hct 20.7 L MCV 52 L MCH 13 L MCHC 26 L RDW 22.8 H Plt Count 252 Add Manual Diff Complete Total Counted 100 Seg Neuts % (Manual) 84.0 H Lymphocytes % (Manual) 12.0 L Monocytes % (Manual) 3.0 Eosinophils % (Manual) 1.0 Basophils % (Manual) Nucleated RBC % 1.0 H Seg Neutrophils # Man 8.1 H Band Neutrophils # 0.0 Lymphocytes # (Manual) 1.2 Abs React Lymphs (Man) 0.0 Monocytes # (Manual) 0.3 Eosinophils # (Manual) 0.1 Basophils # (Manual) 0.0 Metamyelocytes # 0.0 Myelocytes # 0.0 Promyelocytes # 0.0 Blast Cells # 0.0 WBC Morphology Not Reportable Hypersegmented Neuts Not Reportable Hyposegmented Neuts Not Reportable Hypogranular Neuts Not Reportable Smudge Cells Not Reportable Toxic Granulation Not Reportable Toxic Vacuolation Not Reportable Dohle Bodies Not Reportable Pelger-Huet Anomaly Not Reportable [place]omenico Rods Not Reportable Platelet Estimate Consistent w auto Clumped Platelets Not Reportable Plt Clumps, EDTA Not Reportable Large Platelets Not Reportable Giant Platelets Not Reportable Platelet Satelliting Not Reportable Plt Morphology Comment Not Reportable RBC Morphology Not Reportable Dimorphic RBCs Not Reportable Polychromasia Rare Hypochromasia 3+ Poikilocytosis Not Reportable Anisocytosis 1+ Microcytosis 3+ Macrocytosis Not Reportable Spherocytes Not Reportable Pappenheimer Bodies Not Reportable Sickle Cells Not Reportable Target Cells Not Reportable Tear Drop Cells Not Reportable Ovalocytes Not Reportable Helmet Cells Not Reportable [place] Bodies Not Reportable [place] Rings Not Reportable [place] Cells Not Reportable Bite Cells Not Reportable Crenated Cell Not Reportable Elliptocytes Not Reportable Acanthocytes (Spur) Not Reportable Rouleaux Not Reportable Hemoglobin C Crystals Not Reportable Schistocytes Not Reportable Malaria parasites Not Reportable Tamir Bodies Not Reportable Hem Pathologist Commnt No Sodium 141 Potassium 4.2 Chloride 107.3 H Carbon Dioxide 24 Anion Gap 14 BUN 6 L Creatinine 0.6 Estimated GFR > 60 BUN/Creatinine Ratio 10 Glucose 87 Hemoglobin A1c Calcium 9.0 Iron TIBC % Saturation Transferrin Total Bilirubin 0.40 AST 15 ALT 12 Alkaline Phosphatase 71 Troponin T Total Protein 6.8 Albumin 4.0 Albumin/Globulin Ratio 1.4 Vitamin B12 TSH Free T4 Blood Type B POSITIVE Antibody Screen Negative Crossmatch See Detail 10/25/20 10/25/20 10/26/20 18:34 18:34 00:29 WBC RBC Hgb Hct MCV MCH MCHC RDW Plt Count Add Manual Diff Total Counted Seg Neuts % (Manual) Lymphocytes % (Manual) Monocytes % (Manual) Eosinophils % (Manual) Basophils % (Manual) Nucleated RBC % Seg Neutrophils # Man Band Neutrophils # Lymphocytes # (Manual) Abs React Lymphs (Man) Monocytes # (Manual) Eosinophils # (Manual) Basophils # (Manual) Metamyelocytes # Myelocytes # Promyelocytes # Blast Cells # WBC Morphology Hypersegmented Neuts Hyposegmented Neuts Hypogranular Neuts Smudge Cells Toxic Granulation Toxic Vacuolation Dohle Bodies Pelger-Huet Anomaly Domenico Rods Platelet Estimate Clumped Platelets Plt Clumps, EDTA Large Platelets Giant Platelets Platelet Satelliting Plt Morphology Comment RBC Morphology Dimorphic RBCs Polychromasia Hypochromasia Poikilocytosis Anisocytosis Microcytosis Macrocytosis Spherocytes Pappenheimer Bodies Sickle Cells Target Cells Tear Drop Cells Ovalocytes Helmet Cells [place] Bodies [place] Rings [place] Cells Bite Cells Crenated Cell Elliptocytes Acanthocytes (Spur) Rouleaux Hemoglobin C Crystals Schistocytes Malaria parasites Tamir Bodies Hem Pathologist Commnt Sodium Potassium Chloride Carbon Dioxide Anion Gap BUN Creatinine Estimated GFR BUN/Creatinine Ratio Glucose Hemoglobin A1c Calcium Iron 90 TIBC 401 % Saturation 22.44 Transferrin 346 Total Bilirubin AST ALT Alkaline Phosphatase Troponin T < 0.010 Total Protein Albumin Albumin/Globulin Ratio Vitamin B12 TSH 4.260 H Free T4 Blood Type Antibody Screen Crossmatch 10/26/20 10/26/20 10/26/20 00:29 00:29 10:36 WBC 9.0 RBC 4.85 Hgb 9.2 L D Hct 30.9 D MCV 64 L MCH 19 L MCHC 30 RDW 38.7 H Plt Count 232 Add Manual Diff Complete Total Counted 100 Seg Neuts % (Manual) 77.0 H Lymphocytes % (Manual) 13.0 L Monocytes % (Manual) 5.0 Eosinophils % (Manual) 3.0 Basophils % (Manual) 2.0 H Nucleated RBC % Not Reportable Seg Neutrophils # Man 6.9 Band Neutrophils # 0.0 Lymphocytes # (Manual) 1.2 Abs React Lymphs (Man) 0.0 Monocytes # (Manual) 0.5 Eosinophils # (Manual) 0.3 Basophils # (Manual) 0.2 H Metamyelocytes # 0.0 Myelocytes # 0.0 Promyelocytes # 0.0 Blast Cells # 0.0 WBC Morphology Not Reportable Hypersegmented Neuts Not Reportable Hyposegmented Neuts Not Reportable Hypogranular Neuts Not Reportable Smudge Cells Not Reportable Toxic Granulation Not Reportable Toxic Vacuolation Not Reportable Dohle Bodies Not Reportable Pelger-Huet Anomaly Not Reportable Domenico Rods Not Reportable Platelet Estimate Consistent w auto Clumped Platelets Not Reportable Plt Clumps, EDTA Not Reportable Large Platelets 1+ Giant Platelets Not Reportable Platelet Satelliting Not Reportable Plt Morphology Comment Not Reportable RBC Morphology Not Reportable Dimorphic RBCs Not Reportable Polychromasia Not Reportable Hypochromasia 3+ Poikilocytosis Not Reportable Anisocytosis Not Reportable Microcytosis 3+ Macrocytosis Not Reportable Spherocytes Not Reportable Pappenheimer Bodies Not Reportable Sickle Cells Not Reportable Target Cells Not Reportable Tear Drop Cells Not Reportable Ovalocytes Not Reportable Helmet Cells Not Reportable [place] Bodies Not Reportable [place] Rings Not Reportable [place] Cells Not Reportable Bite Cells Not Reportable Crenated Cell Not Reportable Elliptocytes Not Reportable Acanthocytes (Spur) Not Reportable Rouleaux Not Reportable Hemoglobin C Crystals Not Reportable Schistocytes Not Reportable Malaria parasites Not Reportable Tamir Bodies Not Reportable Hem Pathologist Commnt No Sodium 141 Potassium 3.7 Chloride 108.5 H Carbon Dioxide 20 L Anion Gap 16 BUN 6 L Creatinine 0.6 Estimated GFR > 60 BUN/Creatinine Ratio 10 Glucose 93 Hemoglobin A1c Calcium 8.6 Iron TIBC % Saturation Transferrin Total Bilirubin 0.40 AST 22 ALT 12 Alkaline Phosphatase 76 Troponin T Total Protein 7.0 Albumin 3.8 L Albumin/Globulin Ratio 1.2 Vitamin B12 575.2 TSH Free T4 Blood Type Antibody Screen Crossmatch 10/26/20 10/26/20 13:57 Unknown WBC RBC Hgb Hct MCV MCH MCHC RDW Plt Count Add Manual Diff Total Counted Seg Neuts % (Manual) Lymphocytes % (Manual) Monocytes % (Manual) Eosinophils % (Manual) Basophils % (Manual) Nucleated RBC % Seg Neutrophils # Man Band Neutrophils # Lymphocytes # (Manual) Abs React Lymphs (Man) Monocytes # (Manual) Eosinophils # (Manual) Basophils # (Manual) Metamyelocytes # Myelocytes # Promyelocytes # Blast Cells # WBC Morphology Hypersegmented Neuts Hyposegmented Neuts Hypogranular Neuts Smudge Cells Toxic Granulation Toxic Vacuolation Dohle Bodies Pelger-Huet Anomaly Domenico Rods Platelet Estimate Clumped Platelets Plt Clumps, EDTA Large Platelets Giant Platelets Platelet Satelliting Plt Morphology Comment RBC Morphology Dimorphic RBCs Polychromasia Hypochromasia Poikilocytosis Anisocytosis Microcytosis Macrocytosis Spherocytes Pappenheimer Bodies Sickle Cells Target Cells Tear Drop Cells Ovalocytes Helmet Cells [place] Bodies [place] Rings [place] Cells Bite Cells Crenated Cell Elliptocytes Acanthocytes (Spur) Rouleaux Hemoglobin C Crystals Schistocytes Malaria parasites Tamir Bodies Hem Pathologist Commnt Sodium Potassium Chloride Carbon Dioxide Anion Gap BUN Creatinine Estimated GFR BUN/Creatinine Ratio Glucose Hemoglobin A1c 5.0 Calcium Iron TIBC % Saturation Transferrin Total Bilirubin AST ALT Alkaline Phosphatase Troponin T Total Protein Albumin Albumin/Globulin Ratio Vitamin B12 TSH Free T4 1.35 Blood Type Antibody Screen Crossmatch Assessment and Plan - Patient Problems (1) Symptomatic anemia Current Visit: Yes Status: Acute Plan to address problem: - Given very low MCV, suspect chronic losses from GI source. - Since her mother had stomach cancer, we will plan both EGD and colonoscopy tomorrow. - Prep orders written, and patient instructed on diet.
[2020-10-26] MEDS ORDERED: POLYETHYLENE GLYCOL/ELECT SOLN 4000 ML PO ONE ×2 (18:00→21:00)
[2020-10-27] MEDS: hydrALAZINE 20 MG/1 ML INJ IV PRN (01:13)
[2020-10-27 07:39] LABS: Mean Corpuscular HGB Conc 30 % (30-34); Red Blood Count 5.01 M/mm3 (3.65-5.03)
[2020-10-27 07:53] LABS: Blood Urea Nitrogen 4 mg/dL (7-17); Calcium 9.5 mg/dL (8.4-10.2); Hemolysis Index 0
[2020-10-27 07:54] LABS: BUN/Creatinine Ratio 8
[2020-10-27 08:09] LABS: Hematocrit 31.9 % (30.3-42.9); Hemoglobin 9.6 gm/dl (10.1-14.3); Mean Corpuscular Volume 64 fl (79-97); Platelet Count 222 K/mm3 (140-440); Red Cell Distribution Width 38.7 % (13.2-15.2)
--- NOTE | 2020-10-27 08:32 | Progress Note ---
Assessment and Plan Assessment and plan: (1) Symptomatic anemia Current Visit: Yes Status: Acute Plan to address problem: Etiology unclear No obvious source of bleeding Possible severe iron deficiency Transfuse 2 units of packed red blood cells Iron studies and B12 and folic acid requested Possible discharge in 23 hours Follow-up with GI as outpatient (2) Elevated TSH Current Visit: Yes Status: Acute Plan to address problem: Thyroid panel requested (3) DVT prophylaxis Current Visit: Yes Status: Acute Plan to address problem: On heparin and GI prophylaxis 10/26/2020 -Patient's hemoglobin was 5.4 and was transfused 2 units of blood. Posttransfusion hemoglobin and hematocrit pending. Iron panel was done and normal. Patient denied any bleeding from anywhere. Patient states she had dark stool since she was admitted to the hospital. Patient need GI evaluation before discharge. Management plan was discussed with the patient in detail and was in agreement with the plan of care. 10/27/2020 -Hemoglobin this morning was 9.6 after 2 units of packed RBC transfusion. Microcytic anemia; suspicious for chronic GI loss -GI was consulted and will do EGD and colonoscopy. Patient's mother has history of of GI cancer -Free T4 level is normal -Patient can be discharged once cleared by GI History Interval history: Patient was seen and evaluated this morning. Patient did not have any complaints. Hospitalist Physical - Physical exam Narrative exam: Not in cardiopulmonary distress. The patient appeared well nourished and normally developed. Vital signs as documented. Head exam is unremarkable. No scleral icterus . Neck is without jugular venous distension, thyromegaly, or carotid bruits. Lungs are clear to auscultation. Cardiac exam reveals regular rate and Rhythm. Abdominal exam reveals normal bowel sounds, nontender, no organomegaly. Extremities are nonedematous and both femoral and pedal pulses are normal. [employer]: Alert and oriented 3. No focal weakness. - Constitutional Vitals: Temp Pulse Resp BP Pulse Ox 97.6 F 75 18 149/60 99 10/27/20 07:04 10/27/20 07:04 10/27/20 07:04 10/27/20 07:04 10/27/20 07:04 General appearance: Present: no acute distress, well-nourished HEART Score - HEART Score Troponin: Troponin T < 0.010 ng/mL (0.00-0.029) 10/25/20 18:34 Results - Labs CBC & Chem 7: 10/27/20 07:16 10/27/20 07:16 Labs: Laboratory Last Values WBC 7.2 K/mm3 (4.5-11.0) 10/27/20 07:16 RBC 5.01 M/mm3 (3.65-5.03) 10/27/20 07:16 Hgb 9.6 gm/dl (10.1-14.3) L 10/27/20 07:16 Hct 31.9 % (30.3-42.9) 10/27/20 07:16 MCV 64 fl (79-97) L 10/27/20 07:16 MCH 19 pg (28-32) L 10/27/20 07:16 MCHC 30 % (30-34) 10/27/20 07:16 RDW 38.7 % (13.2-15.2) H 10/27/20 07:16 Plt Count 222 K/mm3 (140-440) 10/27/20 07:16 Add Manual Diff Complete 10/26/20 10:36 Total Counted 100 10/26/20 10:36 Seg Neuts % (Manual) 77.0 % (40.0-70.0) H 10/26/20 10:36 Lymphocytes % (Manual) 13.0 % (13.4-35.0) L 10/26/20 10:36 Monocytes % (Manual) 5.0 % (0.0-7.3) 10/26/20 10:36 Eosinophils % (Manual) 3.0 % (0.0-4.3) 10/26/20 10:36 Basophils % (Manual) 2.0 % (0.0-1.8) H 10/26/20 10:36 Nucleated RBC % Not Reportable 10/26/20 10:36 Seg Neutrophils # Man 6.9 K/mm3 (1.8-7.7) 10/26/20 10:36 Band Neutrophils # 0.0 K/mm3 10/26/20 10:36 Lymphocytes # (Manual) 1.2 K/mm3 (1.2-5.4) 10/26/20 10:36 Abs React Lymphs (Man) 0.0 K/mm3 10/26/20 10:36 Monocytes # (Manual) 0.5 K/mm3 (0.0-0.8) 10/26/20 10:36 Eosinophils # (Manual) 0.3 K/mm3 (0.0-0.4) 10/26/20 10:36 Basophils # (Manual) 0.2 K/mm3 (0.0-0.1) H 10/26/20 10:36 Metamyelocytes # 0.0 K/mm3 10/26/20 10:36 Myelocytes # 0.0 K/mm3 10/26/20 10:36 Promyelocytes # 0.0 K/mm3 10/26/20 10:36 Blast Cells # 0.0 K/mm3 10/26/20 10:36 WBC Morphology Not Reportable 10/26/20 10:36 Hypersegmented Neuts Not Reportable 10/26/20 10:36 Hyposegmented Neuts Not Reportable 10/26/20 10:36 Hypogranular Neuts Not Reportable 10/26/20 10:36 Smudge Cells Not Reportable 10/26/20 10:36 Toxic Granulation Not Reportable 10/26/20 10:36 Toxic Vacuolation Not Reportable 10/26/20 10:36 Dohle Bodies Not Reportable 10/26/20 10:36 Pelger-Huet Anomaly Not Reportable 10/26/20 10:36 Domenico Rods Not Reportable 10/26/20 10:36 Platelet Estimate Consistent w auto 10/26/20 10:36 Clumped Platelets Not Reportable 10/26/20 10:36 Plt Clumps, EDTA Not Reportable 10/26/20 10:36 Large Platelets 1+ 10/26/20 10:36 Giant Platelets Not Reportable 10/26/20 10:36 Platelet Satelliting Not Reportable 10/26/20 10:36 Plt Morphology Comment Not Reportable 10/26/20 10:36 RBC Morphology Not Reportable 10/26/20 10:36 Dimorphic RBCs Not Reportable 10/26/20 10:36 Polychromasia Not Reportable 10/26/20 10:36 Hypochromasia 3+ 10/26/20 10:36 Poikilocytosis Not Reportable 10/26/20 10:36 Anisocytosis Not Reportable 10/26/20 10:36 Microcytosis 3+ 10/26/20 10:36 Macrocytosis Not Reportable 10/26/20 10:36 Spherocytes Not Reportable 10/26/20 10:36 Pappenheimer Bodies Not Reportable 10/26/20 10:36 Sickle Cells Not Reportable 10/26/20 10:36 Target Cells Not Reportable 10/26/20 10:36 Tear Drop Cells Not Reportable 10/26/20 10:36 Ovalocytes Not Reportable 10/26/20 10:36 Helmet Cells Not Reportable 10/26/20 10:36 [place] Bodies Not Reportable 10/26/20 10:36 [place] Rings Not Reportable 10/26/20 10:36 [place]ro Cells Not Reportable 10/26/20 10:36 Bite Cells Not Reportable 10/26/20 10:36 Crenated Cell Not Reportable 10/26/20 10:36 Elliptocytes Not Reportable 10/26/20 10:36 Acanthocytes (Spur) Not Reportable 10/26/20 10:36 Rouleaux Not Reportable 10/26/20 10:36 Hemoglobin C Crystals Not Reportable 10/26/20 10:36 Schistocytes Not Reportable 10/26/20 10:36 Malaria parasites Not Reportable 10/26/20 10:36 Tamir Bodies Not Reportable 10/26/20 10:36 Hem Pathologist Commnt No 10/26/20 10:36 Sodium 141 mmol/L (137-145) 10/27/20 07:16 Potassium 4.1 mmol/L (3.6-5.0) 10/27/20 07:16 Chloride 106.9 mmol/L (98-107) 10/27/20 07:16 Carbon Dioxide 24 mmol/L (22-30) 10/27/20 07:16 Anion Gap 14 mmol/L 10/27/20 07:16 BUN 4 mg/dL (7-17) L 10/27/20 07:16 Creatinine 0.5 mg/dL (0.6-1.2) L 10/27/20 07:16 Estimated GFR > 60 ml/min 10/27/20 07:16 BUN/Creatinine Ratio 8 % 10/27/20 07:16 Glucose 88 mg/dL (65-100) 10/27/20 07:16 Hemoglobin A1c 5.0 % (4-6) 10/26/20 Unknown Calcium 9.5 mg/dL (8.4-10.2) 10/27/20 07:16 Iron 90 ug/dL (37-170) 10/26/20 00:29 TIBC 401 mcg/dL (250-450) 10/26/20 00:29 % Saturation 22.44 % 10/26/20 00:29 Transferrin 346 mg/dl (192-382) 10/26/20 00:29 Total Bilirubin 0.40 mg/dL (0.1-1.2) 10/26/20 00:29 AST 22 units/L (5-40) 10/26/20 00:29 ALT 12 units/L (7-56) 10/26/20 00:29 Alkaline Phosphatase 76 units/L (35-129) 10/26/20 00:29 Troponin T < 0.010 ng/mL (0.00-0.029) 10/25/20 18:34 Total Protein 7.0 g/dL (6.3-8.2) 10/26/20 00:29 Albumin 3.8 g/dL (3.9-5) L 10/26/20 00:29 Albumin/Globulin Ratio 1.2 % 10/26/20 00:29 Vitamin B12 575.2 pg/mL (211-911) 10/26/20 00:29 TSH 4.260 mlU/mL (0.270-4.200) H 10/25/20 18:34 Free T4 1.35 ng/dL (0.76-1.46) 10/26/20 13:57 Blood Type B POSITIVE 10/25/20 16:57 Antibody Screen Negative 10/25/20 16:57 Crossmatch See Detail 10/25/20 16:57 Microbiology: Microbiology 10/26/20 Unknown Stool Stool Occult Blood (YARELIS) - Final [place]/IV: Voiding Method Toilet Active Medications - Current Medications Current Medications: Generic Name Dose Route Start Last Admin Trade Name Freq PRN Reason Stop Dose Admin Acetaminophen 650 mg 10/25/20 23:29 Acetaminophen 325 Mg Tab PO Q4H PRN Pain MILD(1-3)/Fever >100.5/BROOKS Heparin Sodium (Porcine) 5,000 unit 10/25/20 23:45 10/26/20 22:47 Heparin 5,000 Unit/1 Ml Vial SUB-Q 5,000 unit Q12HR RONY Administration Hydralazine HCl 10 mg 10/25/20 22:09 10/27/20 01:13 Hydralazine 20 Mg/1 Ml Inj IV 10 mg Q6HR PRN Administration Hypertension Hydromorphone HCl 0.5 mg 10/25/20 23:29 Hydromorphone 1 Mg/1 Ml Inj IV Q3H PRN Pain , Severe (7-10) Metoclopramide HCl 10 mg 10/25/20 23:29 Metoclopramide 10 Mg/2 Ml Inj IV Q6H PRN Nausea And Vomiting Ondansetron HCl 4 mg 10/25/20 23:29 Ondansetron 4 Mg/2 Ml Inj IV Q8H PRN Nausea And Vomiting Oxycodone/Acetaminophen 1 tab 10/25/20 23:29 Oxycodone /Acetaminophen 5-325mg Tab PO Q6H PRN Pain, Moderate (4-6) Sodium Chloride 10 ml 10/26/20 10:00 10/26/20 23:05 Sodium Chloride 0.9% 10 Ml Flush Syringe IV 10 ml BID RONY Administration Sodium Chloride 10 ml 10/25/20 23:29 10/26/20 22:47 Sodium Chloride 0.9% 10 Ml Flush Syringe IV 10 ml PRN PRN Administration LINE FLUSH
--- NOTE | 2020-10-27 10:59 | Anesthesia Consultation ---
Anesthesia Consult and Med Hx Date of service: 10/27/20 - Airway Anesthetic Teeth Evaluation: Good (uneven) ROM Head & Neck: Adequate Mental/Hyoid Distance: Adequate Mallampati Class: Class II Intubation Access Assessment: Probably Good - Pre-Operative Health Status ASA Pre-Surgery Classification: ASA2 Proposed Anesthetic Plan: MAC - Pulmonary Hx Smoking: No Hx Asthma: No COPD: No Hx Pneumonia: No Hx Sleep Apnea: (high score marlen) - Cardiovascular System Hx Hypertension: Yes - Endocrine Hx End Stage Renal Disease: No Hx Hypothyroidism: Yes (elevated TSH) - Hematic Hx Anemia: Yes (s/p RBCs x2 this admission) Hx Sickle Cell Disease: No - Other Systems Hx Cancer: Yes
[2020-10-27 11:01] LABS: Total Cells Counted 100
[2020-10-27 11:02] LABS: Anisocytosis 3+; Giant Platelets Rare; Hypochromasia 2+; Large Platelets 1+; Platelet Estimate Consistent w Auto; Toxic Granulation Few
--- NOTE | 2020-10-27 11:02 | Anesthesia Day of Surgery ---
Anesthesia Day of Surgery - Day of Surgery Patient Examined: Yes Patient H&P Reviewed: Yes Patient is NPO: Yes
[2020-10-27] MEDS ORDERED: SODIUM CHLORIDE 0.9% 1000 ML 1,000 ML ONE (11:05)
[2020-10-27] MEDS: HEPARIN 5,000 UNIT/1 ML VIAL SUB-Q SCH (11:34)
[2020-10-27] MEDS ORDERED: propofoL 200 MG/20 ML VIAL IV ONE ×2 (11:34→11:48)
--- NOTE | 2020-10-27 12:06 | Post Operative Note ---
Pre-op diagnosis: Iron Def Anemia Post-op diagnosis: other (Colon Mass) Findings: 1. Normal EGD 2. Obstructing circumferential mass in apparent asc colon (scope would not pass) - Cold bx taken - Tattoo with 5ml [place]k Procedure: EGD Colonoscopy with cold bx and [place] tattoo Anesthesia: MAC Surgeon: ELIDIA BANKS Estimated blood loss: minimal Pathology: list (1. Colon Mass, R/O CA) Specimen disposition: to lab Condition: stable Disposition: floor (Recs: 1. Surgical consult and CT of C/A/P. 2. OK to resume liquid diet for now.)
[2020-10-27] MEDS ORDERED: SODIUM CHLORIDE 0.9% 1000 ML 1,000 ML IV SCH (13:00)
--- NOTE | 2020-10-27 14:10 | Discharge Summary ---
Providers - Providers Date of Admission: 10/27/20 09:04 Date of discharge: 10/27/20 Attending physician: SANA CANSECO MD 10/26/20 09:17 Consult to Physician [CONS] Routine Comment: Consulting Provider: KASHMIR GUZMÁN Physician Instructions: Reason For Exam: anemia, dark stool Primary care physician: MEDICAL SERVICES ASSISTANT Hospitalization Reason for admission: Severe microcytic anemia Condition: Stable Procedures: EGD/colonoscopy Hospital course: History of present illness: 69-year-old female sent by her PCP for low hemoglobin of about 5.5. Patient has been having severe dizziness and lightheadedness and increased fatigue. Shortness of breath worsens with exertion. Is been going on for the past 1 month. No hematemesis no melena. Patient denies being anemic in the past and no history of any blood transfusions previously. Denies any vaginal bleeding. No fever or chills. No pain. Hospital course Patient was admitted to the floor and was transfused 2 units of blood and posttransfusion hemoglobin was 9.6. Patient had dark stool and GI was consulted. Given patient's mother has history of GI malignancy and patient had microcytic anemia GI did EGD and colonoscopy. Colonoscopy showed malignancy. Dr. Elidia Banks said patient does not need immediate intervention on the weekends and he recommend to discharge the patient and will follow the patient in the office. Patient's daughter is a nurse and is considering to take her to [place] for outpatient follow-up. Anyway I have make an appointment to see Dr. Banks in the office in 1 week and need a referral for surgery. Patient was hemodynamically stable at the time of discharge. Patient was given iron tablets. Patient advised to be on full liquid diet. Management plan was explained to the patient. Disposition: DC-01 TO HOME OR SELFCARE Final Discharge Diagnosis (Prints w/discharge instructions): Colon cancer. Severe microcytic anemia Time spent for discharge: 35 minutes - Discharge Diagnoses (1) Colon cancer Status: Acute (2) Anemia requiring transfusions Status: Acute (3) Elevated TSH Status: Acute (4) Hypertension Status: Acute Qualifiers: Hypertension type: primary hypertension Qualified Code(s): I10 - Essential (primary) hypertension (5) Microcytic anemia Status: Acute (6) Symptomatic anemia Status: Acute Core Measure Documentation - Palliative Care Palliative Care/ Comfort Measures: Not Applicable - Core Measures Any of the following diagnoses?: none Exam - Physical Exam Narrative exam: Not in cardiopulmonary distress. The patient appeared well nourished and normally developed. Vital signs as documented. Head exam is unremarkable. No scleral icterus . Neck is without jugular venous distension, thyromegaly, or carotid bruits. Lungs are clear to auscultation. Cardiac exam reveals regular rate and Rhythm. Abdominal exam reveals normal bowel sounds, nontender, no organomegaly. Extremities are nonedematous and both femoral and pedal pulses are normal. HYPERBARIC TECH: Alert and oriented 3. No focal weakness. - Constitutional Vitals: Temp Pulse Resp BP Pulse Ox 97.4 F L 74 18 147/71 97 10/27/20 12:08 10/27/20 12:25 10/27/20 12:25 10/27/20 12:25 10/27/20 12:25 Plan Activity: no restrictions Weight Bearing Status: Full Weight Bearing Diet: other (Full liquid diet) Follow up with: LACY ATKINSON MD [Primary Care Provider] - 7 Days ELIDIA BANKS MD [Staff Physician] - 7 Days Prescriptions: Ferrous Sulfate [Feosol 325 MG tab] 325 mg PO TID #90 tablet
[2020-10-27 15:26] VITALS: BP 132/82
--- NOTE | 2020-10-27 15:36 | Operative Report ---
DATE OF SURGERY: 10/27/2020 PROCEDURE PERFORMED: Esophagogastroduodenoscopy as well as incomplete colonoscopy due to obstructing mass, with cold biopsy and [place] ink for tattoo. PREOPERATIVE DIAGNOSIS: Iron deficiency anemia. POSTOPERATIVE DIAGNOSIS: Colon mass. ENDOSCOPIST: Buddy Choudhary MD INSTRUMENT: The Olympus video endoscope. MEDICATIONS: MAC anesthesia by Anesthesia services. COMPLICATIONS: No apparent complications. ESTIMATED BLOOD LOSS: Minimal. SPECIMENS: Colon mass, rule out malignancy. IMPLANTS: None. ASSISTANTS: None. CONDITION AT COMPLETION: Stable. TECHNIQUE: The patient was informed of the risks and benefits of the procedure. She signed the informed consent to proceed. She was placed in the left lateral decubitus position. The above sedative medications were given. Her vital signs remained stable throughout the procedure. The instrument was advanced from the mouth to the second portion of the duodenum under direct visualization. At that point, the bowel was insufflated and the endoscope was slowly withdrawn. The bed was then rotated, the colonoscope was advanced from the anus to the apparent ascending colon, or possibly the proximal transverse. At that point, a large circumferential obstructing mass was seen and although the distal lumen could be visualized, the endoscope could not be advanced. Multiple cold biopsies were taken, the area was tattooed and the endoscope was slowly withdrawn. The quality of the preparation was good. FINDINGS: 1. Normal stomach, esophagus, and duodenum. 2. An obstructing circumferential mass was present in the likely distal ascending colon versus proximal transverse colon. A. The distal lumen could be visualized, but the endoscope could not advance through the lumen. B. Colon biopsies were taken. C. The area was tattooed with 5 mL of submucosal [place] ink. D. The quality of preparation of the more distal colon was good, so the lesion is not completely obstructing. RECOMMENDATIONS: 1. Surgical consult and a CT scan of the chest, abdomen, and pelvis for staging. 2. Okay to resume a liquid diet for now. 3. If there is evidence of significant obstruction on the CT scan, or the patient develops significant bleeding, she will need to remain as a inpatient for operative management. TID: [id number] RECEIPT: [id number]/RINKU
--- NOTE | 2020-10-27 21:35 | Post Anesthesia Evaluation ---
- Post Anesthesia Evaluation Patient Participated: Yes Airway Patent: Yes Stable Respiratory Function: Yes Nausea/Vomiting: No Temp > 96.8F: Yes Pain Manageable: Yes Adequeate Hydration: Yes Anesthesia Complications: No Block Receding Appropriately: Not Applicable Patient on Ventilator: No
--- NOTE | 2020-11-02 10:22 | Cat Scan Report ---
CT CHEST, ABDOMEN, AND PELVIS WITH IV CONTRAST INDICATION: Colon mass omni 300 100ml. COMPARISON: None available. TECHNIQUE: All CT scans at this location are performed using CT dose reduction for ALARA by means of automated e xposure control. Axial CT images were obtained through the chest, abdomen, and pelvis after IV contrast. FINDINGS: Skeletal System: No acute abnormality. CHEST: Heart: Normal. Thoracic Aorta: No acute abnormality. Mediastinum & Linh: No significant abnormality. Lungs: No acute air space or interstitial disease. There is scarring bilaterally, greatest at the ap ices. Pleura: No significant pleural effusion. No pneumothorax. Airways: No significant abnormality. Additional Findings: None. ABDOMEN: Liver: Within the posterior right lobe, there is a subtle, ill-defined hypodense lesion which measure s 3.8 cm on axial series 3 image 25. No additional liver lesions are seen. Gallbladder: There are numerous gallstones. Bile Ducts: No significant abnormality. Pancreas: No significant abnormality. Spleen: No significant abnormality. Adrenals: No significant abnormality. Right Kidney and Proximal Ureter: No significant abnormality. Left Kidney and Proximal Ureter: No acute abnormality. There is a cyst in the lateral cortex which co ntains dependent calcification along its posterior wall, this could be milk of calcium. Stomach and Bowel: No significant abnormality. Lymph Nodes: No significant adenopathy. Aorta: No significant abnormality. IVC: No significant abnormality. Additional Findings: None. PELVIS: Urinary Bladder and Distal Ureters: No significant abnormality. Appendix: No significant abnormality. Colon: At the distal ascending colon/hepatic flexure, there is circumferential, irregular short segme nt narrowing of the wall with mild surrounding stranding. The colon is otherwise unremarkable. There are couple shotty nodes in the adjacent mesentery. Free Fluid: None. Lymph Nodes: No significant adenopathy. Additional Findings: The uterus contains numerous coarse calcifications and hypodense lesions. The la rgest of these hypodense lesions measures 5.9 cm. IMPRESSION: 1. Primary colonic neoplasm in the distal ascending colon/hepatic flexure as described above. 2. Ill-defined 3.8 cm hypodense lesion in the posterior right lobe of the liver concerning for metast atic disease. 3. No CT evidence of metastatic disease in the chest. 4. Additional, incidental findings as above. Signer Name: Dion Sargent MD Signed: 11/02/2020 10:17 AM Workstation Name: [id number]
== END 2020-10-27 17:00 | disposition home or self-care (01) | DRG 376 ==
LOC: ED 16:20 → 3B-SURG 19:44 → OBSVTOIN 10-27 09:04
PROVIDERS: ADMIT Internal Medicine; ATTEND Internal Medicine
PROC: 30233N1 Transfusion of Nonautologous Red Blood Cells into Peripheral Vein, Percutaneous Approach (ICD-10-PCS; 2020-10-25)
PROC: 0DJ08ZZ Inspection of Upper Intestinal Tract, Via Natural or Artificial Opening Endoscopic (ICD-10-PCS; principal; 2020-10-27)
PROC: 0DBK8ZX Excision of Ascending Colon, Via Natural or Artificial Opening Endoscopic, Diagnostic (ICD-10-PCS; 2020-10-27)
DX: C18.9 Malignant neoplasm of colon, unspecified (principal); D50.0 Iron deficiency anemia secondary to blood loss (chronic); I10 Essential (primary) hypertension; Z80.0 Family history of malignant neoplasm of digestive organs; Z98.51 Tubal ligation status; Z79.899 Other long term (current) drug therapy; Z79.891 Long term (current) use of opiate analgesic; Z79.01 Long term (current) use of anticoagulants
CPT/HCPCS: 36415; 71260; 74177; 80048; 80053; 82270; 82607; 82747; 83036; 83550; 84439; 84443; 84484; 85007; 85025; 86850; 86900; 86901; 86920; 88305; 93005; 96374; 96375; G0378; J0360; J1644; J2704; J7030; J7040; P9016; Q9967